=== PATIENT | male | born 1950 | race Caucasian/White ===

== ENCOUNTER 2021-12-01 12:49 | Observation (INO) ==
[2021-12-01 15:45] LABS: Basophils % 0.4 %; Hematocrit 17.4 %; Platelet Count 181 K/mcL (140-400)
[2021-12-01 15:46] LABS: Eosinophils % 0.4 %; Immature Granulocytes % 13.6 % (0-4); Lymphocytes # 0.4 K/mcL (0.6-4.6); Mean Corpuscular Hemoglobin 30.7 pg (28.0-33.3); Mean Corpuscular Volume 98.9 fL (83.0-100.0); Monocytes # 0.9 K/mcL (0.0-1.3); Neutrophils # 0.8 K/mcL (1.6-8.9); Red Blood Count 1.76 M/mcL; Red Cell Distribution Width 17.8 % (11.5-14.5); Segmented Neutrophils % 33.6 %; White Blood Count 2.5 K/mcL (4.3-11.1)
[2021-12-01 15:53] LABS: Hemoglobin 5.4 g/dL; INR 1.2; Prothrombin Time 13.3 Seconds (9.4-12.1)
[2021-12-01 15:56] LABS: Activated Partial Thrombo Time 29.8 Seconds (26.0-36.0)
[2021-12-01 16:00] LABS: Alanine Aminotransferase 18 Units/L (7-52); Albumin 2.7 g/dL (3.5-5.7); Albumin/Globulin Ratio 0.9 (1.1-2.2); Alkaline Phosphatase 219 Units/L (34-104); Aspartate Amino Transferase 23 Units/L (13-39); BUN/Creatinine Ratio 40 (6-26); Bilirubin,Total 0.5 mg/dL (0.3-1.0); Blood Urea Nitrogen 50 mg/dL (8-23); Carbon Dioxide 32 mEq/L (23-29); Chloride 101 mEq/L (98-107); Glucose 86 mg/dL (70-105); Osmolality,Calculated 303 (280-300); Potassium 3.8 mEq/L (3.5-5.1); Sodium 140 mEq/L (136-145); Total Protein 5.7 g/dL (6.4-8.9)
[2021-12-01 16:04] LABS: Anisocytosis 1+ (Not Present); Platelet Estimate Normal (Normal); Poikilocytosis 1+ (Not Present)
[2021-12-01] MEDS ORDERED: 0.9 % Sodium Chloride 250 ML ONE (16:56)
[2021-12-01] MEDS ORDERED: Naloxone 0.4 MG/ML INJ IVP PRN ×2 (17:23→17:24)
[2021-12-01 18:20] LABS: % Iron Saturation 85 % (20-55); Iron 143 mcg/dL (65-175); Transferrin 120 mg/dL (203-362)
[2021-12-01 20:23] LABS: Hematocrit 20.3 % (37.5-50.1); Hemoglobin 6.9 g/dL (12.9-16.9)
[2021-12-02] MEDS: *HR* Dextrose 50 % in Water (Syg) 50 ML SYRINGE IVP PRN ×4 (03:03→16:26)
[2021-12-02 03:49] LABS: Basophils % 0.6 %; Eosinophils % 0.6 %; Hematocrit 20.7 % (37.5-50.1); Immature Granulocytes % 0.6 % (0-4); Lymphocytes % 29.9 %; Mean Corpuscular HGB Conc 33.8 g/dL (31.6-35.5); Mean Corpuscular Hemoglobin 31.1 pg (28.0-33.3); Mean Platelet Volume 10.8 fL (9.4-12.4); Monocytes # 1.1 K/mcL (0.0-1.3); Platelet Count 198 K/mcL (140-400); Red Blood Count 2.25 M/mcL (4.19-5.50); Red Cell Distribution Width 17.2 % (11.5-14.5); Segmented Neutrophils % 36.3 %; White Blood Count 3.4 K/mcL (4.3-11.1)
[2021-12-02 03:54] LABS: Neutrophils # 1.2 K/mcL (1.6-8.9)
[2021-12-02 04:11] LABS: Anisocytosis 1+ (Not Present); Platelet Estimate Normal (Normal)
[2021-12-02 04:12] LABS: Albumin 2.7 g/dL (3.5-5.7); Albumin/Globulin Ratio 0.9 (1.1-2.2); Bilirubin,Total 0.6 mg/dL (0.3-1.0); Calcium 9.3 mg/dL (8.6-10.3); Globulin 2.9 g/dL (2.4-3.5); Potassium 3.9 mEq/L (3.5-5.1); Total Protein 5.6 g/dL (6.4-8.9)
[2021-12-02] MEDS ORDERED: Albuterol 2.5 MG/3 ML NEBULIZER IH PRN (07:58)
[2021-12-02] MEDS ORDERED: Acetaminophen 325 MG TABLET PO PRN (07:58)
[2021-12-02] MEDS ORDERED: Ferrous Sulfate Oral Soln 300 MG/5 ML UDC GTUBE SCH (09:00)
[2021-12-02 09:08] LABS: Phosphorous 2.2 mg/dL (2.7-4.5)
[2021-12-02] MEDS ORDERED: 0.9 % Sodium Chloride 250 ML ONE (13:57)
[2021-12-02 16:04] LABS: Influenza A PCR Negative (Negative); Influenza B PCR Negative (Negative); Resp. Syncytial Virus PCR Negative (Negative)
[2021-12-02 16:13] VITALS: BP 125/62; PULSE 93; TEMP 98.6; O2SAT 95
[2021-12-02 16:25] LABS: SARS-CoV-2 by PCR (In House) Negative (Negative)
== END 2021-12-02 18:17 ==
LOC: EMEROOARM 12:49 → 2NNU 12:49
PROVIDERS: ADMIT Student in an Organized Health Care Education/Training Program; ATTEND Student in an Organized Health Care Education/Training Program